=== PATIENT | female | born 1965 | race American Indian/Alaskan Native ===

== ENCOUNTER 2018-09-30 13:36 | Outpatient (CLI) | payer BC ==
--- NOTE | 2018-10-01 10:39 | Mammography Report ---
BILATERAL DIGITAL SCREENING MAMMOGRAM with CAD: 09/30/18 13:36:00 CLINICAL: Routine screening.History of a left benign surgical excision area and COMPARISON:03/01/15 FINDINGS: The breasts are heterogeneously dense, which may obscure small masses and the left breast is smaller than the right as seen on previous exams. Left asymmetries require additional imaging. No architectural distortion or suspicious calcifications.The right breast is negative. IMPRESSION: Left asymmetries requiring further workup. BI-RADS CATEGORY: 0 -- Additional Imaging Evaluation Required RECOMMENDATION: Recall for left mediolateral , spot compression CC and MLO views and left breast ultrasound if needed. COMMENT: 1. Dense breast tissue, i.e., adenosis, fibrocystic changes, etc., may obscure an underlying neoplasm. 2. Approximately 10% of cancers are not detected with mammography. 3. A negative mammography report should not delay biopsy if a clinically suspicious mass is present. COMMENT: Patient follow-up letters are generated via our [employer] application.
== END 2018-09-30 13:37 | disposition home or self-care (01) ==
LOC: MAMMO 13:36
PROVIDERS: ATTEND Family Medicine
DX: Z12.31 Encounter for screening mammogram for malignant neoplasm of breast (principal)
CPT/HCPCS: 77067

== ENCOUNTER 2018-11-01 13:31 | Outpatient (CLI) | payer BC ==
--- NOTE | 2018-11-01 14:24 | Mammography Report ---
LEFT DIGITAL DIAGNOSTIC MAMMOGRAM INDICATION: Recall for asymmetry TECHNIQUE: Digital left mammographic imaging was performed. Spot compression views were obtained. COMPARISON: 09/30/2018 FINDINGS: Breast Density: The breasts are heterogeneously dense, which may obscure small masses. Satisfactory effacement of asymmetries. There is no evidence of dominant mass, suspicious calcificati ons or architectural distortion in the left breast. IMPRESSION: No mammographic evidence of malignancy. BI-RADS Category 1: Negative. Recommend routine screening mammography in one year. A "normal" or negative report should not discourage follow up or biopsy of a clinically significant f inding. A written summary of these findings will be mailed to the patient. The patient will be entered into a mammography reporting system which will generate a reminder letter for the patient's next appointmen t at the appropriate interval. FURTHER INFORMATION: According to the [employer], yearly mammograms are recommend ed starting at age 40 and continuing as long as a woman is in good health. Breast MRI is recommended for women with an approximately 20-25% or greater lifetime risk of breast cancer, including women wi th a strong family history of breast or ovarian cancer and women who have been treated for Hodgkin's disease. Signer Name: Cole Jimenez MD Signed: 11/01/2018 2:20 PM Workstation Name: [id number]
== END 2018-11-01 13:32 | disposition home or self-care (01) ==
LOC: MAMMO 13:31
PROVIDERS: ATTEND Family Medicine
DX: R92.8 Other abnormal and inconclusive findings on diagnostic imaging of breast (principal)

== ENCOUNTER 2021-06-16 08:55 | Emergency (ER) | payer OTHER ==
[2021-06-16] MEDS ORDERED: FLUORESCEIN 1 MG STRIP OP ONE (11:06)
[2021-06-16] MEDS ORDERED: TETRACAINE 0.5% OPHTH SOLN 4ML OU ONE (11:06)
--- NOTE | 2021-06-16 12:36 | Emergency Department Report ---
ED Eye Problem HPI - General Chief complaint: Eye Problems Stated complaint: RT EYE PROBLEMS Time Seen by Provider: 06/16/21 11:00 Source: patient Mode of arrival: Ambulatory Limitations: No Limitations - History of Present Illness Initial comments: This is a 55-year-old female nontoxic, well nourished in appearance, no acute signs of distress presents to the ED with c/o of acute on chronic intermittent right eye redness, itching and crusting that started several days ago. Patient stated has history of this and seen rn clinical coordinator and was diagnosed with tobramycin, dexamethasone eyedrops which she ran out and stated this helped her and is requesting for refill. Patient denies any trauma to the eye. Denies any foreign body sensation or floaters. Patient denies any eye pain. Patient denies any visual changes or decreased vision. Patient denies any fever, chills, nausea, vomiting, chest pain, breath, headache, stiff neck numbness or tingling. Patient denies any allergies. -: days(s) Onset Description: gradual Location: right eye If Injury: none Eye Symptoms: redness, itching Severity: mild Severity scale (0 -10): 3 Associated Symptoms: none. denies: headache, neck pain, nausea/vomiting, cough, rhinorrhea, fever, shortness of breath - Related Data Home Medications Medication Instructions Recorded Confirmed Last Taken Cyclobenzaprine HCl [Flexeril 5 MG 5 mg PO QHS 07/05/14 07/05/14 06/29/14 TAB] carvediloL [Coreg] 25 mg PO BID 07/05/14 07/05/14 07/05/14 Previous Rx's Medication Instructions Recorded Last Taken Type HYDROcodone/ACETAMINOPHEN [[place] 1 each PO Q6HR PRN #25 tablet 07/05/14 Unknown Rx 7.5-325 mg TAB] Ibuprofen [Motrin 800 MG tab] 800 mg PO TID #40 tablet 07/05/14 Unknown Rx predniSONE [Deltasone] 40 mg PO QDAY #10 tab 07/05/14 Unknown Rx Tobramycin/Dexamethasone [Tobradex 1 drop OD 4XD 7 Days #1 bottle 06/16/21 Unk nown Rx Eye Drops 0.3/0.1%] Allergies Allergy/AdvReac Type Severity Reaction Status Date / Time No Known Allergies Allergy Verified 06/16/21 09:05 ED Review of Systems ROS: Stated complaint: RT EYE PROBLEMS Other details as noted in HPI Comment: All other systems reviewed and negative Constitutional: denies: chills, fever Eyes: eye discharge. denies: eye pain, vision change ENT: denies: ear pain, throat pain Respiratory: denies: cough, shortness of breath, wheezing Cardiovascular: denies: chest pain, palpitations Endocrine: no symptoms reported Gastrointestinal: denies: abdominal pain, nausea, diarrhea Genitourinary: denies: urgency, dysuria, discharge Musculoskeletal: denies: back pain, joint swelling, arthralgia Skin: denies: rash, lesions Neurological: denies: headache, weakness, paresthesias Psychiatric: denies: anxiety, depression Hematological/Lymphatic: denies: easy bleeding, easy bruising ED Past Medical Hx - Past Medical History Additional medical history: arrythmia - Surgical History Additional Surgical History: intestinal surgery - Social History Smoking Status: Never Smoker Substance Use Type: None - Medications Home Medications: Home Medications Medication Instructions Recorded Confirmed Last Taken Type Cyclobenzaprine HCl [Flexeril 5 MG 5 mg PO QHS 07/05/14 07/05/14 06/29/14 History TAB] HYDROcodone/ACETAMINOPHEN [[place] 1 each PO Q6HR PRN #25 tablet 07/05/14 Unknown Rx 7.5-325 mg TAB] Ibuprofen [Motrin 800 MG tab] 800 mg PO TID #40 tablet 07/05/14 Unknown Rx carvediloL [Coreg] 25 mg PO BID 07/05/14 07/05/14 07/05/14 History predniSONE [Deltasone] 40 mg PO QDAY #10 tab 07/05/14 Unknown Rx Tobramycin/Dexamethasone [Tobradex 1 drop OD 4XD 7 Days #1 bottle 06/16/21 Unknown Rx Eye Drops 0.3/0.1%] ED Physical Exam - General Limitations: No Limitations General appearance: alert, in no apparent distress - Head Head exam: Present: atraumatic, normocephalic - Eye Eye exam: Present: normal appearance, PERRL. Absent: scleral icterus, conjunctival injection, nystagmus, periorbital swelling, periorbital tenderness Pupils: Present: normal accommodation, other (some erythema to right sclera). Absent: irregular, unequal, miosis, mydriatic - Expanded Eye Exam Expanded Eyelids: Normal Inspection: Right Pupils: Regular, Round: Right, Reactive: Right Sclera/Conjunctival: Normal Inspection: Right (with some erythema) Visual acuity (R) = 20/: 40 Visual acuity (L) = 20/: 40 (Bilateral: 20/30) With correction: No - ENT ENT exam: Present: normal exam, normal orophraynx - Neck Neck exam: Present: normal inspection, full ROM. Absent: tenderness, meningismus, lymphadenopathy - Respiratory Respiratory exam: Absent: respiratory distress - Cardiovascular Cardiovascular Exam: Present: regular rate - Extremities Exam Extremities exam: Present: full ROM - Back Exam Back exam: Present: full ROM - Neurological Exam Neurological exam: Present: alert, oriented X3, normal gait - Psychiatric Psychiatric exam: Present: normal affect, normal mood - Skin Skin exam: Present: warm, dry, intact, normal color. Absent: rash - Other Other exam information: Under Quiroz lamp, I used fluorescein and tetracaine to examine cornea for corneal abrasion or foreign body, negative for coronary abrasion or foreign body noted upon exam. ED Course Vital Signs 06/16/21 09:03 Temperature 98.1 F Pulse Rate 74 Respiratory 14 Rate Blood Pressure 124/62 [Right] O2 Sat by Pulse 100 Oximetry - Reevaluation(s) Reevaluation #1: 06/16/21 12:38 Patient is speaking in full sentences with no signs of distress noted. ED Medical Decision Making - Medical Decision Making 55-year-old female that presents with uveitis. Patient is stable and was examined by me. Otherwise physical exam is unremarkable. Patient will be discharged with tobramycin/dexamethasone. Patient was instructed to follow-up with a rn clinical coordinator doctor in 2 days or if symptoms worsen and continue return to emergency room as soon as possible. At time of discharge, the patient does not seem toxic or ill in appearance. No acute signs of distress noted. Patient agrees to discharge treatment plan of care. No further questions noted by the patient. Critical care attestation.: If time is entered above; I have spent that time in minutes in the direct care of this critically ill patient, excluding procedure time. ED Disposition Clinical Impression: Uveitis of right eye Disposition: HOME / SELF CARE / HOMELESS Is pt being admited?: No Does the pt Need Aspirin: No Condition: Stable Instructions: Uveitis Additional Instructions: Follow-up with a [facility] doctor in 2 days or if symptoms worsen and continue return to emergency room as soon as possible. Prescriptions: Tobramycin/Dexamethasone [Tobradex Eye Drops 0.3/0.1%] 1 drop OD 4XD 7 Days #1 bottle Referrals: PRIMARY CARE, [Primary Care Provider] - 3-5 Days CHANCE DIAS MD [Staff Physician] - 06/18/21 Time of Disposition: 12:45
[2021-06-16 13:14] VITALS: BP 137/63
== END 2021-06-16 13:12 | disposition home or self-care (01) ==
LOC: ED 08:55
DX: H20.9 Unspecified iridocyclitis (principal); Z79.899 Other long term (current) drug therapy
CPT/HCPCS: 99283